=== PATIENT | male | born 1985 | race Caucasian/White ===

== ENCOUNTER 2018-10-19 11:26 | Emergency (ER) | payer OTHER ==
[~2018-10-19] VITALS: Ht 180.3 cm; Wt 81.6 kg
[2018-10-19 11:40] VITALS: BP 125/76
--- NOTE | 2018-10-19 13:02 | NUR ---
CALLED IN WAITING AREA NO ANSWER.
== END 2018-10-19 13:05 | disposition left against medical advice (07) ==
LOC: EDSEX 11:28 → ER 11:28
DX: Z53.21 Procedure and treatment not carried out due to patient leaving prior to being seen by health care provider (principal); M54.9 Dorsalgia, unspecified; R10.32 Left lower quadrant pain